=== PATIENT | male | born 1970 | race Caucasian/White ===

== ENCOUNTER 2017-08-10 11:37 | Emergency (ER) | payer OTHER ==
[~2017-08-10] VITALS: Ht 167.6 cm; Wt 81.8 kg
[2017-08-10 12:26] LABS: HEMATOCRIT 43.9 % (38.0-50.0); HEMOGLOBIN 15.5 G/DL (12.5-16.6); MCH 31.5 PG (29.0-34.0); MCHC 35.3 G/DL (30.0-36.0); MCV 89.2 FL (86-99); PLATELET COUNT 173 K/uL (156-360); RBC DIS.WIDTH-CV 11.9 % (11.8-14.6); RBC DIS.WIDTH-SD 38.4 % (39-53); RED BLOOD COUNT 4.92 M/uL (4.00-5.50); WHITE BLOOD COUNT 26.1 K/uL (4.1-10.2)
[2017-08-10 12:57] LABS: TROP-I INTERPRETATION NEGATIVE; TROPONIN-I < 0.01 ng/mL (0.0-0.30)
[2017-08-10 13:20] LABS: CHLORIDE 103 MEQ/L (99-109); CREATININE 1.3 MG/DL (0.6-1.3); GFR ESTIMATE (CALCULATED) > 59 mL/min/ (58.99-99999); GLUCOSE 152 mg/dL (70-99); POTASSIUM 3.8 MEQ/L (3.7-5.4); SODIUM 139 MEQ/L (136-147); UREA NITROGEN (BUN) 27 mg/dL (9-23)
[2017-08-10] MEDS ORDERED: PREDNISONE20 MG PO (14:55)
[2017-08-10] MEDS ORDERED: ZITHROMAX250 MG PO (14:55)
[2017-08-10] MEDS ORDERED: VENTOLIN HFA18 GM IH (14:55)
[2017-08-10 15:23] VITALS: BP 119/67
== END 2017-08-10 15:27 | disposition home or self-care (01) ==
LOC: EME 11:37
PROVIDERS: Nurse Practitioner Family
DX: J45.909 Unspecified asthma, uncomplicated (principal); J40 Bronchitis, not specified as acute or chronic
CPT/HCPCS: 71046; 80048; 84484; 85027; 87502; 93005; 94640; 99281; 99285; J7030